=== PATIENT | male | born 1950 | race Caucasian/White ===

== ENCOUNTER → 2016-07-17 | Day surgery (SDC) | payer MEDICARE, OTHER ==
--- NOTE | 2016-07-16 07:57 | SC.ANESEVA ---
Anesthesia Eval & Plan ([facility]) - Medications/Allergies Allergies: Allergies lovastatin Allergy (Verified 01/01/15 16:55) Nausea/Vomiting simvastatin Allergy (Verified 01/01/15 16:55) Nausea/Vomiting Current Medication List: Reviewed - Focused Physical Exam NPO since: Since after Midnight Mallampati: Class II Thyromental Distance: Greater than 3 Neck: Full Range of Motion Dental: Normal - no significant findings Cardiovascular/Chest: Normal (RRR no mumurs or rubs.) Respiratory: Lungs clear. negative: Wheezing Any problems with anesthesia, including nausea and vomiting?: No Any relatives with a history of Malignant Hyperthermia?: No Other: Diagnoses UNILATERAL PRIMARY OSTEOARTHRITIS, LEFT KNEE (07/17/16) PAIN IN LEFT KNEE (07/17/16) COMPLEX TEAR OF LAT MENSC, CURRENT INJURY, LEFT KNEE, INIT (07/17/16) Allergies Allergy/AdvReac Type Severity Reaction Status Date / Time lovastatin Allergy Nausea/Vomi Verified 01/01/15 16:55 ting simvastatin Allergy Nausea/Vomi Verified 01/01/15 16:55 ting Home Medications Medication Instructions Recorded Last Taken Type Metformin HCl [Glucophage Xr] 500 mg PO BID 10/26/13 12/10/15 History [place]-3 Fatty Acids/Fish Oil [Fish 2,000 mg PO DAILY 10/26/13 12/10/15 History Oil 1,000 mg Softgel] Omeprazole [Prilosec] 40 mg PO DAILY 10/26/13 12/10/15 History Ascorbate Calcium [Vitamin C] 500 mg PO DAILY 12/10/15 12/10/15 History Aspirin 81 mg PO DAILY 12/10/15 12/09/15 History Cholecalciferol (Vitamin D3) 2,000 unit PO DAILY 12/10/15 12/10/15 History [Vitamin D3] Cyanocobalamin (Vitamin B-12) 500 mcg SL DAILY 12/10/15 12/10/15 History [Vitamin B-12] Gabapentin 300 mg PO DAILY 12/10/15 12/10/15 History Losartan/Hydrochlorothiazide 1 each PO DAILY 12/10/15 12/10/15 History [Losartan-Hctz 50-12.5 mg Tab] Rosuvastatin Calcium [Crestor] 20 mg PO DAILY 12/10/15 12/10/15 History Zolpidem Tartrate [Ambien] 10 mg PO DAILY 12/10/15 12/10/15 History Height and Weight Patient's height 5 ft 10 in Patient's weight 108.862 kg BMI 34.4 - Anesthetic Plan Anesthesia Type: General ASA Class: 3 - Focused Review of Systems Cardiac History: Yes: Hx Hypertension, Hx Cardiac Catheterization (NEG. PER PT.) , Hx Abnormal Cholesterol/Hyperlipidemia HEENT: No: Other HEENT Problems Gastrointestinal: Yes: Hx Gastroesophageal Reflux Disease, Hx Diverticulitis, Hx Colonoscopy, Hx Endoscopy Neurological/Musculoskeletal: No: Hx Neurological Disorders Endocrine: Yes: Hx Non-Insulin Dependent Diabetes Blood/Autoimmune: No: Hx Blood Transfusions, Hx AIDS, Hx Hepatitis (type) Smoking Status: Never smoker Surgical History: Yes: T&A Other Surgical History: TONSILLECTOMY
[2016-07-16 13:49] VITALS: BMI 36.5
[~2016-07-17] MED LIST: BUPIVACAINE 0.25%-EPINEPHRINE 1:200,000 30 ML INF ONE; DEXAMETHASONE 4 MG/ML VIAL IV PRN; DEXAMETHASONE 4 MG/ML VIAL ONE; DIAZEPAM 5 MG TAB PO PRN; FENTANYL 100 MCG/2 ML VIAL IV PRN; FENTANYL 100 MCG/2 ML VIAL ONE; HYDROCODONE 5 MG/ACETAMIN 325 MG TAB PO PRN; KETOROLAC TROMETH 30 MG/ML VIAL IV PRN; KETOROLAC TROMETH 30 MG/ML VIAL ONE; LABETALOL 20 MG/4 ML SYRINGE IV PRN; LR 1,000 ML IV ONE; LR 1,000 ML IV SCH; MIDAZOLAM 2 MG/2 ML VIAL ONE; NS 1,000 ML IV SCH; NS 250 ML IV SCH; ONDANSETRON HCL 4 MG/2 ML VIAL IV PRN; ONDANSETRON HCL 4 MG/2 ML VIAL ONE; PROPOFOL 200 MG/20 ML VIAL IV ONE; SCOPOLAMINE TRANSDERMAL PATCH TOP PRN; hydrALAZINE 20 MG/ML VIAL IV PRN
--- NOTE | 2016-07-17 08:54 | PCM.DCS92 ---
Discharge Outpatient Note Additional Instructions: Instructions given: 07/17/16 Prescriptions (given at the office) Diet as tolerated Discharge Instructions: * Apply ice to the surgical site for 15-20 minutes out of each hour while awake for the first 2 days post-op, then apply as often as needed to control swelling and pain * Elevate the surgical extremity while sitting or lying down * Keep Bandage clean and dry * May shower after Physical Therapy appointment * Take stool softener while taking pain medication * Ambulate weight bearing as tolerated * No Driving until cleared Follow up in office as scheduled - Call office for any additional concerns. ([phone]) Follow up with Physical therapy as scheduled
[2016-07-17 10:22] VITALS: TEMP 97.2
[2016-07-17 10:42] VITALS: BP 122/66; PULSE 80
--- NOTE | 2016-07-17 12:12 | SC.ANESPOS ---
Post-Anesthesia Note LOC: Fully Awake Post-Anesthesia Assessment: Awake, Returned to Baseline, Hemodynamically Stable , Pain Control Adequate Phase I & II Recovery Complete: Yes Apparent Anesthesia Complication: No : N - Vital Signs Blood Pressure: 122/66 Pulse: 80 Resp Rate: 18 O2 Sat: 98 Temp: 97.2 F
--- NOTE | 2016-07-17 12:29 | HIMOP ---
DATE OF PROCEDURE: 07/17/2016 PREOPERATIVE DIAGNOSES: 1. Lateral meniscus tear. 2. Osteoarthritis of left knee. POSTOPERATIVE DIAGNOSES: 1. Medial and lateral meniscus tears, left knee. 2. Chondromalacia femur. 3. Chondromalacia patella. 4. Synovitis. OPERATIONS: 1. Subtotal medial and lateral meniscectomy left knee. 2. Chondroplasty femur. 3. Chondroplasty patella. 4. Synovectomy. PLANT CONTROL AIDE: Tasha Lowe PA-C. ANESTHESIA: General. DRAINS: None. COMPLICATIONS: None. BLOOD LOSS: Minimal. DISPOSITION: Stable to recovery. PROCEDURE IN DETAIL: The patient was taken back to the surgical suite, where general anesthesia was induced. The left knee was examined. Ligamentously, it was noted to be stable. A tourniquet was applied to the left thigh, but it was not inflated. The left thigh was positioned in leg smith. The left knee and leg were then prepped and draped in the standard sterile fashion. An #11 blade was used to establish a lateral parapatellar joint line portal through which the arthroscopy trocar, and cannula was introduced into the knee joint. The knee was insufflated with sterile saline solution. The arthroscope was introduced. The medial gutter was initially visualized. No pathology was noted. The medial compartment was then visualized. There was a small degenerative tear involving the anterior horn of the medial meniscus. A medial parapatellar joint line portal was established. The shaver was introduced and a subtotal medial meniscectomy was performed with the shaver. The remainder of the medial meniscus, the flank, and posterior horn appeared normal. It was probed and noted to be intact. There was a small area of grade 3 chondromalacia of the anterior aspect of the medial tibial plateau. Chondroplasty was performed to this area with shaver and there was a grade 3 and grade 2 chondromalacia diffusely affecting the weightbearing portion of the medial femoral condyle. A chondroplasty was performed of the grade 3 areas with shaver. The intercondylar notch area was visualized. ACL and PCL appeared normal. They were probed and noted to be intact. The lateral compartment was visualized. There was a complex tear involving the posterior horn and flank of the lateral meniscus. It was probed and noted to be an unstable bucket- handle type tear. Using the shaver and biters, and a large grasper, a subtotal lateral meniscectomy was performed. The remaining lateral meniscus did have some degenerative changes in it, but it was a stable rim posteriorly and extending into the flank. The anterior horn of the lateral meniscus was in good condition. There was diffuse grade 3 chondromalacia affecting the weightbearing portion to the lateral femoral condyle with some grade 2 changes of the lateral tibial plateau as well. A chondroplasty was performed with the grade 3 areas of the lateral femoral condyle. The lateral gutter showed no pathology. The patellofemoral joint was visualized. There was diffuse grade 2 chondromalacia affecting the femoral trochlea. There was some grade 3 chondromalacia of the patella at the apex and some diffuse grade 2 changes of the patella. No sign of patellar malalignment. No pathology in the suprapatellar pouch. A chondroplasty was performed of the patella with shaver. There was also noted to be significant synovitis impinging in the patellofemoral joint and a synovectomy was performed as well. The arthroscopic instruments were then removed. Portals were closed with 3-0 Prolene. Sterile dressings were applied and an Jake wrap. The patient was extubated and taken to the recovery room in stable condition. He tolerated the procedure well without immediate complications. [id number]
== END ==
LOC: CPSC 07:51
PROVIDERS: ATTEND Orthopaedic Surgery
PROC: 0SBD4ZZ Excision of Left Knee Joint, Percutaneous Endoscopic Approach (ICD-10-PCS; principal; 2016-07-17 08:45)
DX: S83.272A Complex tear of lateral meniscus, current injury, left knee, initial encounter (principal); S83.242A Other tear of medial meniscus, current injury, left knee, initial encounter; M22.42 Chondromalacia patellae, left knee; M65.862 Other synovitis and tenosynovitis, left lower leg; M17.12 Unilateral primary osteoarthritis, left knee; I10 Essential (primary) hypertension; I25.10 Atherosclerotic heart disease of native coronary artery without angina pectoris; E11.9 Type 2 diabetes mellitus without complications; E78.5 Hyperlipidemia, unspecified; K21.9 Gastro-esophageal reflux disease without esophagitis; E66.9 Obesity, unspecified; E78.00 Pure hypercholesterolemia, unspecified; G62.9 Polyneuropathy, unspecified; Z79.899 Other long term (current) drug therapy; Z79.84 Long term (current) use of oral hypoglycemic drugs; Z68.36 Body mass index [BMI] 36.0-36.9, adult; X50.1XXA Overexertion from prolonged static or awkward postures, initial encounter
CPT/HCPCS: 29880; 82962; J1100; J1885; J2250; J2405; J2704; J3010; J3490